=== PATIENT | female | born 1975 | race African-American/Black ===

== ENCOUNTER 2020-03-30 15:56 | Emergency (ER) | payer BC ==
[~2020-03-30] VITALS: Ht 154.9 cm; Wt 88.5 kg
--- OUTSIDE RECORDS SUMMARY | 2020-03-30 15:59 | XMS REPORT | Summary of Care ---
Author Author NENITA HANNAH DDS Organization Unknown Address Unknown Phone Unavailable Care Team Providers Care Logging Engineer Name Role Phone BRIELLE VILLAFANA SAMIDONNA Unavailable Unavailable Brielle CHAUDHARIAshok Samidonna Unavailable Unavailable Functional Status Name Dates Details Functional status health issues are not documented Status: Name Dates Details Cognitive status health issues are not d ocumented Status: Problems Name Dates Details Impacted teeth (520.6, K01.1) Status: Active Apical or periapical granuloma (522.6, K 04.5) Status: Active Medications Name Dates Details Medications not documented Allergies and Adverse Reactions Name Dates Details Allergy history not documented Status: Past Medical History Name Dates Details History of High blood pressure (401.9, I 10) Status: Resolved Procedures Procedure Dates Details History of No history of surgery Complet ed Immunization Name Dates Details Immunizations not documented Social History Name Dates Details Tobacco smoking consumption unknown (finding) Vital Signs Date Test Result Details [id number] Systolic blood pressure 158 mm[Hg] Status: Diastolic blood pressure 106 mm[Hg] Status: Body height 61 in Status: Weight 220 lb Status: Body mass index (BMI) [Ratio] 41.57 kg/m2 Status: Body surface area Derived from formula 1.97 m2 S tatus: Heart Rate 110 /min Status: Body temperature 98.6 f Status: Results Date Description Value Details Results not documented Plan of Care Name Dates Details Planned Observations Planned Goals not documented Interventions Provided Plan* - no treatment due to consistent elevated BP * - return precautions given * - pt to see PCP for BP med titration * - return precautions given. Discussion/Summary* Impression: Ms. Pablo presents for extraction of teeth #31 and 32 under IV sedation. Her SBP was consistently 150-180s and DBP 100- 119. Pt was asymptomatic, denies headache, dizziness, blurry vision, etc. No swelling noted intraorally or extraorally. ELAYNE > 40mm. There is some mild pericoronitis associated with partially exposed #32. Due to hypertension, case will be deferred at this time. Pt has been taking her amlodipine as directed, and she will visit her PCP to possibly titrate medication for better BP control. No treatment completed. Return precautions given, will reschedule. Instructions Name Dates Details Instructions not documented Encounters Appointment; SONIA HANNAH DDS Encounter Diagnosis: Problem not documented On: 09-Jul-2019 14:00 Appointment; SONIA HANNAH DDS Encounter Diagnosis: Problem not documented On: 11-Mar-2020 14:30
--- OUTSIDE RECORDS SUMMARY | 2020-03-30 15:59 | XMS REPORT | Summary of Care ---
Author Author NENITA HANNAH DDS Organization Unknown Address Unknown Phone Unavailable Care Team Providers Care Entry Level Account Executive Name Role Phone SONIA HANNAH DDS Unavailable Unavailable Sonia Hannah DDS Unavailable Unavailable Functional Status Name Dates Details [...] not documented Social History Name Dates Details Unknown if ever smoked Vital Signs Date Test Result Details [id number] BP Systolic 193 mm[Hg] Status: BP Diastolic 114 mm[Hg] Status: Height 61 in Status: Weight 220 lb Status: Body Mass Index Calculated 41.57 kg/m2 Status: Body Surface Area Calculated 1.97 m2 Status: Heart Rate 62 /min Status: Results Date Description Value Details Results not documented Plan of Care Name Dates Details Planned Observations Planned Goals not documented Planned Encounters Appointment; SONIA HANNAH DDS On: 13-Aug-2019 9:00 Interventions Provided Plan* The patient elected for extraction of tooth #32 and wait for general dentist to evaluate tooth #31. The patient was given the treatment options associated with tooth #17 which included no treatment, coronectomy or extraction and she understands t risk associated with left IA nerve. The patient elected for no treatment associated with tooth #17. * Follow up with PCP for management of uncontrolled hypertension * Extraction of tooth #32 under IV sedation. Discussion/Summary* Impression: The patient is a 43 yo female who [facility] extraction of symptomatic tooth #32. She has complete bony impacted teeth #1, 16, 17 and horizontal partial bony impacted tooth #32 with minimal eruption on clinical exam. No signs of active infectious process observed. Radiological findings suggestive that cause of recent pain was #31 not #32. * All findings and information presented to the patient including treatment options. The patient understands that tooth #31 appears to have a large distal carious lesion that could be source of her pain and that she will need to follow up with general dentist to restore tooth or have it extracted, if she doesn't want to extract it at this time. Instructions Name Dates Details Instructions not documented Encounters Appointment; SONIA HANNAH DDS Encounter Diagnosis: Problem not documented On: 09-Jul-2019 14:00
--- OUTSIDE RECORDS SUMMARY | 2020-03-30 15:59 | XMS REPORT | Summary of Care ---
Author NENITA Nguyen Niki Organization Unknown Address Unknown Phone Unavailable Care Team Providers Care Grade Teacher Name Role Phone BUSAIDY DDS, KAMAL Unavailable Unavailable Busaidy DDS, Kamal Unavailable Unavailable Functional Status Name Dates Details [...] (finding) Vital Signs Date Test Result Details [id number] Systolic blood pressure 158 mm[Hg] Status: Diastolic [...]
--- OUTSIDE RECORDS SUMMARY | 2020-03-30 15:59 | XMS REPORT | Summary of Care ---
Author Author [facility] Address [address] [place] [address] Phone Unavailable Care Team Providers Care Stitcher Hand Name Role Phone Sonia Hannah DDS Unavailable Unavailable Functional Status [...] (finding) Vital Signs Date Test Result Details No Known Vitals to report Results Date Description Value Details Results not documented Plan of Care Name Dates Details Planned Observations Planned Goals not documented Instructions Name Dates Details Instructions not documented Encounters Appointment; SONIA HANNAH DDS Encounter Diagnosis: Problem not documented On: 09-Jul-2019 14:00
--- OUTSIDE RECORDS SUMMARY | 2020-03-30 15:59 | XMS REPORT ---
Author Author [facility] t Organization [facility] Address [address] [place] [address] Phone Unavailable Care Team Providers Care Label Press Operator Name Role Phone SONIA HANNAH DDS Attphys Unavailable Problems Condition Name Condition Details Condition Category Status Onset Date Resolution Date Last Treatment Date Treating Clinician Comments Source History of High blood pressure History of High blood pressure Probl em Resolved [facility] Impacted teeth Impacted teeth Problem Active [facility] Apical or periapical granuloma Apical or periapical granuloma Problem Active [facility] Allergies, Adverse Reactions, Alerts This patient has no known allergies or adverse reactions. Medications This patient has no known medications. Vital Signs Vital Name Observation Time Observation Value Comments Source Systolic blood pressure 2020-03-11 14:21:00 158 mm[Hg] [facility] Diastolic blood pressure 2020-03-11 14:21:00 106 mm[Hg] [facility] Body height 2020-03-11 14:21:00 61 [in_us] [facility] Weight 2020-03-11 14:21:00 220 [lb_av] [facility] Body mass index (BMI) [Ratio] 2020-03-11 14:21:00 41.57 kg/m2 [facility] Heart Rate 2020-03-11 14:21:00 110 /min [facility] Body temperature 2020-03-11 14:21:00 98.6 [degF] [facility] BP Systolic 2019-07-09 14:23:00 193 mm[Hg] [facility] BP Diastolic 2019-07-09 14:23:00 114 mm[Hg] [facility] Height 2019-07-09 14:23:00 61 [in_us] [facility] Weight 2019-07-09 14:23:00 220 [lb_av] [facility] Body Mass Index Calculated 2019-07-09 14:23:00 41.57 kg/m2 [facility] Heart Rate 2019-07-09 14:23:00 62 /min [facility] Procedures This patient has no known procedures. Encounters Start Date/Time End Date/Time Encounter Type Admission Type [facility] Care Department Encounter ID Source 2020-03-11 14:30:00 2020-03-11 14:30:00 Appointment; SONIA HANNAH DDS BUSAIDY, KAMAL, DDS [facility] [id number] [facility] 2019-07-09 14:00:00 2019-07-09 14:00:00 Appointment; SONIA HANNAH DDS BUSAIDY, KAMAL, DDS [facility] [id number] [facility] Results This patient has no known results.
[2020-03-30] MEDS ORDERED: CLINDAMYCIN 600MG / 50ML 50 ML IV STA (16:12)
[2020-03-30] MEDS ORDERED: SODIUM CHLORIDE 0.9% 1000ML 1,000 ML IV STA ×2 (16:22→16:33)
[2020-03-30] MEDS ORDERED: INSULIN REGULAR, HUMAN 100 UNIT/1 ML 3ML VIAL IV STA (16:33)
[2020-03-30 16:39] LABS: BASOPHILS # (AUTO) 0.1 (0.0-0.1); BASOPHILS % 0.9 % (0.0-1.0); EOSINOPHILS # (AUTO) 0.1 (0.0-0.4); EOSINOPHILS % 1.1 % (0.0-6.0); HEMOGLOBIN 12.3 g/dL (12.0-16.0); LYMPHOCYTES # (AUTO) 3.9 (1.0-3.2); LYMPHOCYTES % 37.4 % (18.0-39.1); MEAN CORPUSCULAR HEMOGLOBIN 24.9 pg (28-32); MEAN CORPUSCULAR HGB CONC 31.5 g/dL (31-35); MEAN CORPUSCULAR VOLUME 79.1 fL (81-99); MONOCYTES # (AUTO) 0.7 (0.2-0.8); MONOCYTES % 6.9 % (4.4-11.3); NEUTROPHILS # (AUTO) 5.6 (2.1-6.9); NEUTROPHILS % 53.4 % (38.7-80.0); PLATELET COUNT 362 x10e3/uL (140-360); RED BLOOD COUNT 4.93 x10e6/uL (3.6-5.1); RED CELL DISTRIBUTION WIDTH 14.6 % (11.7-14.4)
--- NOTE | 2020-03-30 16:45 | Emergency Department Note ---
History of Present Illnes History of Present Illness Chief Complaint: sent by pcp because elevated blood glucose 500's History of Present Illness This is a 44 year old female. was doing well until 5 weeks ago then toothache(tooth# 31) then 3 weeks ago then polydipsia. then fatigue. no other symptoms Historian: Patient Arrival Mode: Car History limited by: condition of the patient (normal) Drop Hammer Set Up Operator Required: No Onset (how long ago): hour(s) (4) Location: n/a Quality: n/a Radiation: non-radiation Severity: moderate Timing of current episode: constant Progression: worsening Chronicity: new Relieving factors: none Exacerbating factors: none Associated symptoms: denies other symptoms Treatments prior to arrival: none Past Medical/Family History Physician Review I have reviewed the patient's past medical and family history. Any updates have been documented here. Past Medical History Recent Fever: No Clinical Suspicion of Infectio: No New/Unexplained Change in Ment: No Past Medical History: Hypertension Other Medical History: gestational dm Past Surgical History: Social History Smoking Cessation: Never Smoker Counseling Performed: No Any Illegal Drug Use: No TB Exposure/Symptoms: No Physically hurt or threatened: No Family History Family history of heart diseas: No Other Last Tetanus: unk Any Pre-Existing Lines (PICC,: No Is patient up to date on immun: No Review of Systems Review of Systems Constitutional: no symptoms EENTM: as per HPI Cardiovascular: no symptoms Respiratory: no symptoms Gastrointestinal: no symptoms Genitourinary: no symptoms Musculoskeletal: no symptoms Neurological: no symptoms Psychological: no symptoms Endocrine: as per HPI Hematological/Lymphatic: no symptoms Review of other systems All other systems reviewed and negative. Physical Exam Related Data Allergies: Coded Allergies: chlorthalidone (Verified Allergy, Unknown, 03/30/20) Triage Vital Signs Vital Signs Date Time Temp Pulse Resp B/P (MAP) Pulse Ox O2 Delivery O2 Flow Rate FiO2 03/30/20 16:08 98.6 108 18 157/103 98 Vital signs reviewed: Yes Physical Exam CONSTITUTIONAL Constitutional: well-developed, well-nourished HENT HENT: normocephalic, atraumatic, mucosae dry, nose normal HENT L/R: left ext ear normal, right ext ear normal EYES Eyes: PERRL, conjunctivae normal NECK Neck: ROM normal PULMONARY Pulmonary: effort normal, breath sounds normal CARDIOVASCULAR Cardiovascular: regular rhythm, heart sounds normal, capillary refill normal, normal rate GASTROINTESTINAL Abdominal: soft, nontender, bowel sounds normal GENITOURINARY Genitourinary: exam deferred SKIN Skin: warm, dry MUSCULOSKELETAL Musculoskeletal: ROM normal NEUROLOGICAL Neurological: alert, oriented x 3, no gross motor or sensory deficits PSYCHOLOGICAL Psychological: mood/affect normal, judgement normal Results Laboratory Laboratory Laboratory Tests Test 03/30/20 16:10 03/30/20 16:05 Bedside Glucose 341 mg/dL (70-120) Lab results reviewed: Yes (cbc/cmp/cardiac enzymes are normal except potassium= 2.9) Imaging Imaging results reviewed: Yes (cxr wnl) Diagnostics Tests Diagnostic test(s) reviewed: Yes (ekg = sinus tachycardia, nonspecific t waves abnormality, yk=916, st segments normal) Critical Care Time Subsequent provider I assumed direction of critical care for this patient from another provider of my specialty. Assessment & Plan Assessment & Plan Final Impression: (1) New onset type 2 diabetes mellitus (2) Hypokalemia (3) Tooth abscess (4) UTI (urinary tract infection) (5) Hypertension Assessment & Plan take rxed clindamycin, potassium chloride, omnicef, metformin, lisinopril. f/u with pcp Depart Disposition: HOME, SELF-CARE Last Vital Signs Date Time Temp Pulse Resp B/P (MAP) Pulse Ox O2 Delivery O2 Flow Rate FiO2 03/30/20 16:08 98.6 108 18 157/103 98 Medications in the ED Clindamycin Phosphate 50 ml @ 50 mls/hr NOW STAT IV ; Start 03/30/20 at 16:12; Stop 03/30/20 at 17:11 Sodium Chloride 1,000 ml @ 1,000 mls/hr Q1H STAT IV ; Start 03/30/20 at 16:22; Stop 03/30/20 at 17:21 KAVITHA HENRY March 30, 2020 16:45
[2020-03-30 16:48] LABS: COLOR,URINE YELLOW (YELLOW)
[2020-03-30 16:49] LABS: BILIRUBIN,URINE NEGATIVE (NEGATIVE); CLARITY,URINE SL CLOUDY (CLEAR); KETONES,URINE 2+ (NEGATIVE); LEUKOCYTE ESTERASE ,URINE NEGATIVE (NEGATIVE); NITRITE,URINE NEGATIVE (NEGATIVE); PREGNANCY TEST, URINE NEGATIVE (NEGATIVE); PROTEIN,URINE DIPSTICK NEGATIVE (NEGATIVE); URINE UROBILINOGEN 0.2 mg/dL (0.2 - 1)
[2020-03-30 17:00] LABS: ALANINE AMINOTRANSFERASE 15 IU/L (0-55); ALBUMIN 4.1 g/dL (3.5-5.0); ALKALINE PHOSPHATASE 128 IU/L (40-150); ANION GAP 17.9 mmol/L (8-16); BACTERIA,URINE MODERATE /HPF; BLOOD UREA NITROGEN 21 mg/dL (7-26); BUN/CREATININE RATIO 14 (6-25); CALCIUM 9.9 mg/dL (8.4-10.2); CARBON DIOXIDE 27 mmol/L (22-29); CHLORIDE 91 mmol/L (98-107); CREATINE KINASE 87 IU/L (29-168); CREATININE, SERUM 1.55 mg/dL (0.57-1.11); EPITHELIAL CELLS,URINE MANY /LPF; EST GLOMERULAR FILTRATION RATE 44 ML/MIN (60-); GLUCOSE 324 mg/dL (74-118); RBC,URINE 0-5 /HPF (0-5); SODIUM 133 mmol/L (136-145)
[2020-03-30 17:22] LABS: POTASSIUM 2.9 mmol/L (3.5-5.1)
[2020-03-30] MEDS ORDERED: POTASSIUM CHLORIDE 20 MEQ TAB CR PO ONE (17:22)
[2020-03-30] MEDS ORDERED: CEFTRIAXONE SOD 1 GM/NS 50 ML 50 ML IV ONE (18:02)
--- NOTE | 2020-03-30 18:26 | Diagnostic Imaging Report ---
Examination: PA and lateral view of the chest. COMPARISON: None. INDICATION: Chest pain DISCUSSION: Lines/tubes: None. Lungs: The lungs are well inflated and clear. No pneumonia or pulmonary edema. Pleura: There is no pleural effusion or pneumothorax. Heart and mediastinum: The heart and the mediastinum are unremarkable. Bones and soft tissues: No acute bony abnormalities. IMPRESSION: 1. No acute cardiopulmonary abnormalities. Signed by: Dr. Tristan Felix M.D. on 03/30/2020 6:23 PM
[2020-03-30] MEDS ORDERED: LABETALOL HCL 5 MG/ML 20ML VIAL IV STA (18:49)
[2020-03-30] MEDS ORDERED: LABETALOL HCL 5 MG/ML 20ML VIAL IV ONE (19:00)
== END 2020-03-30 19:10 | disposition home or self-care (01) ==
LOC: ER 15:56
DX: E11.65 Type 2 diabetes mellitus with hyperglycemia (principal); E87.6 Hypokalemia; K04.7 Periapical abscess without sinus; N39.0 Urinary tract infection, site not specified; I10 Essential (primary) hypertension
CPT/HCPCS: 36415; 71046; 80053; 81001; 81025; 82550; 82553; 82948; 83735; 84484; 85025; 99284; J0696; J3490; J7030; 93005